=== PATIENT | male | born 1960 | race Caucasian/White ===

== ENCOUNTER 2024-12-01 18:54 | Emergency (ER) | payer SELFPAY ==
[2024-12-01 19:05] VITALS: BMI 34.7
--- NOTE | 2024-12-01 19:40 | ED.UPPEXIN1 ---
HPI HPI - Extremity Injury (Upper) General Chief Complaint: Extremity Injury, Upper Stated Complaint: LEFT UPPER EXTREMITY INJURT Time Seen by Provider: 12/01/24 19:06 History of Present Illness HPI narrative: Patient is a 64-year-old male presents to the ER for evaluation of left hand injury. He is right-hand dominant. Removed a tractor engine and was inspecting it while it sat on a fork lift. He reports a child lowered the fork and the engine came down on his middle finger and ring finger for a significant period of time until they could get someone to pull the fork back up off his hand. He is unsure of his last tetanus. Patient immediately squeezed the hand with a rag and has had applied direct pressure since injury until arrival here in the ER. He appears anxious with injury and notes moderate to severe pain in the middle and ring finger. He does not have any rings on his fingers. Patient reports only allergy is to codeine. He is daughter and granddaughter. Patient drives a truck for a living. MD complaint: injury to: Reports left and finger Other Extremity Injury: Left: fingers Other injuries: Reports none Hand dominance: right Place: Reports other ([employer]- not at work per patient. ) Severity: moderate Exacerbating factors: Reports movement of extremity Context: Reports crush Related Data Previous Rx's ?Medication ?Instructions ?Recorded cephalexin 500 mg capsule 500 mg PO QID 10 days #40 caps 12/01/24 hydrocodone 5 mg-acetaminophen 325 1 tab PO QID PRN pain 4 days #16 12/01/24 mg tablet tabs Allergies Allergy/AdvReac Type Severity Reaction Status Date / Time codeine Allergy Unknown Rash Verified 12/01/24 19:04 Opioid HPI Opioid Management Most Recent Pain and Opioid Data: No Data to Display Review of Systems ROS Constitutional Denies: fever or chills Eyes Denies: change in vision Ears, nose, mouth, and throat Denies: throat pain or neck pain Cardiovascular Denies: chest pain or palpitations Respiratory Denies: shortness of breath Gastrointestinal Denies: abdominal pain or nausea Musculoskeletal Reports: extremity pain (left ring and middle finger); Denies: back pain or neck pain Integumentary/Breast Denies: rash or itching Neurological Denies: headache Psychiatric Denies: anxiety Hematologic/Lymphatic Reports: easy bleeding (per patient) PFSH PFSH Social History Little interest or pleasure in doing things: not at all Feeling down, depressed, or hopeless: not at all Exam Narrative Exam Narrative: Nurse's notes and vital signs reviewed. Patient is not hypoxic. General: The patient appears anxious pacing in the room. Skin: Warm, dry, no pallor noted. Degloving injury to the volar aspect of the middle finger from the distal phalanx to the PIP joint. Skin is heavily soiled the ring finger has puncture wounds along the middle phalanx and distal phalanx both nails appear to have significant full subungual hematoma. Skin flap tip noted to the tip of the middle finger Head: Normocephalic, atraumatic Eye: Normal conjunctiva Respiratory: Patient is in no distress Musculoskeletal: The left wrist shows no obvious deformity. Tissue skin injuries noted to the ring and middle finger with degloving as described above. Patient has heavily soiled hands with grease and dirt. There was minimal swelling noted finger the hand is otherwise unremarkable. The patient had intact flexion and extension despite obvious degloving and some visualization of the flexor tendon in the middle finger along with visualization of some bone of the distal phalanx of the middle finger. Sensation is blunted to the middle finger at the distal tip but present at the ring finger at the distal tip. The patient had tenderness to the middle and ring finger at the middle phalanxes and distal phalanxes no pain to the proximal phalanx or MCP joints the hand and wrist are without evidence of injury or tenderness. The patient had no tenderness in the anatomical snuff box. The patient had no pain with axial loading of the thumb. Pulses are intact at brachial and radial 2+. There was no deficit at the elbow or shoulder. The patient has normal capillary refill to all distal digits. The patient has no evidence of cyanosis or mottling. The patient is able to flex and extend all digits without difficulty. Neurological: A&O x4, normal sensory, normal motor Psychiatric: Cooperative MDM - Extremity Injury (Upper) MDM Narrative Medical decision making narrative: Patient presented with what appeared to be extreme pain from a crush injury to his middle and ring finger patient in the room requesting pain relief. He has intact flexion extension and sensation is present to the tip of his ring finger the middle finger has a notable degloving injury and sensation is significantly blunted but pain is present. Patient agreeable to digital block. Risks and benefits of procedure discussed. His have hand is heavily soiled with grease from working on an engine. Patient had flexor tendon sheath block performed on the ring and middle finger with a 50-50 mix of 1% lidocaine and 0.5% bupivacaine approximately 4 mL in each finger. He reported near immediate pain relief and appeared much more calm. Flexion extension noted to be intact the hand was cleansed with Hibiclens scrub brush and irrigated extensively with 0.9% saline a wet to dry gauze dressing was applied pending x-ray evaluation. There was no rotational deformity of the finger noted. Patient had a tetanus update, will be given Ancef 2 g IV. Case discussed with on-call orthopedics Dr. Brar. We discussed the patient's skin injuries fracture to the tip of his middle finger that is open but intact flexion and extension. He is aware of the extensive irrigation here at the bedside and we discussed the need for potential skin graft closure given tissue damage with degloving and crushing injury. He would like to see the patient Wednesday in his office for evaluation and have a prescription for Keflex 500 mg 4 times a day pending his evaluation. Patient aware that he can be n.p.o. the night before if he does not want to be awake for the procedure otherwise may have a digital block. Patient thankful, tolerated block well here today with extensive irrigation of the fingers and cleaning. Sutures were not placed as the hand was significantly dirty and skin flap is large and thin with open fracture. Patient verbally agrees to follow-up Wednesday in Dr. Brar's office at 10:15am as recommended and will return to the ER over the weekend if any symptoms worsen or new symptoms develop. Patient was very thankful for expedient care. Wound care discussed he is to leave the dressing on the hand pending follow-up with can return to the ER over the weekend should he have any concerns pending his Wednesday appointment. Patient is very pleased with an outpatient follow-up rather than overnight admission. Lab Data Attestation: I reviewed the patient's lab results. Labs: Lab Results 12/01/24 Range/Units 20:00 WBC 5.9 (4.0-11.0) 10^3/uL RBC 5.27 (4.70-6.10) 10^6/uL Hgb 15.2 (14.0-18.0) g/dL Hct 44.0 (42.0-54.0) % MCV 83.5 (80.0-94.0) fL MCH 28.8 (25.9-34.0) pg MCHC 34.5 (29.9-35.2) g/dL RDW 12.7 (11.0-15.0) % Plt Count 155 (150-450) 10^3/uL MPV 11.1 (9.5-13.5) fL Neut % (Auto) 57.5 (43.0-75.0) % Lymph % (Auto) 29.1 (20.5-60.0) % [place] % (Auto) 10.5 (1.7-12.0) % Eos % (Auto) 2.2 (0.9-7.0) % Baso % (Auto) 0.5 (0.2-2.0) % Neut # (Auto) 3.4 (1.4-6.5) 10^3/uL Lymph # (Auto) 1.7 (1.2-3.8) 10^3/uL [place] # (Auto) 0.6 (0.3-0.8) 10^3/uL Eos # (Auto) 0.1 (0.0-0.7) 10^3/uL Baso # (Auto) 0.0 (0.0-0.1) 10^3/uL Abs Immat Gran (auto) 0.01 (0.00-0.03) 10^3/uL Imm/Tot Granulo (auto) 0.2 (0.0-0.5) % Sodium 139 (136-145) mmol/L Potassium 3.7 (3.5-5.1) mmol/L Chloride 104 (98-107) mmol/L Carbon Dioxide 25.9 (21.0-32.0) mmol/L Anion Gap 12.8 BUN 25.0 H (7.0-18.0) mg/dL Creatinine 0.99 (0.70-1.30) mg/dL Est GFR ( Amer) >60 (>=60 mL/min/1.73m^2) Est GFR (Non-Af Amer) >60 (>=60 mL/min/1.73m^2) BUN/Creatinine Ratio 25.3 Glucose 101 (74-106) mg/dL Calcium 8.6 (8.5-10.1) mg/dL Imaging Data X-ray left hand: Attestation: I personally reviewed and interpreted this imaging study as follows: My impression: Soft tissue swelling to the left middle finger and ring finger there is a displaced distal phalanx fracture to the middle finger Radiologist's impression: Neurologist interpretation is pending. Discharge Plan Discharge Chief Complaint: Extremity Injury, Upper Clinical Impression: Crushing injury of left ring finger, initial encounter, Open fracture of distal phalanx of digit of left hand, Degloving injury of finger Crushing injury of left middle finger Qualifiers: Encounter type: initial encounter Qualified Code(s): S67.193A - Crushing injury of left middle finger, initial encounter Patient Disposition: Home, Self-Care Time of Disposition Decision: 20:40 Condition: Good Prescriptions / Home Meds: New cephalexin 500 mg capsule 500 mg PO QID 10 Days Qty: 40 0RF hydrocodone-acetaminophen 5-325 mg tablet 1 tab PO QID PRN (Reason: pain) 4 Days Qty: 16 0RF Print Language: Nepalese Instructions: Finger Fracture (ED), Skin Avulsion (ED) Additional Instructions: If You are wanting sedation for procedure with Dr. Brar. Do not eat or drink after midnight on Wednesday Follow up Wednesday at 10:15am with Dr. Brar and have a distribution driver. Referrals: Simon Brar MD [Physician] - 12/04/24 10:15 am Procedures ED Ortho Splinting/Casting Orthopedic Splinting/Casting Injury #1: Additional comments: Splint Application: The patient was placed in a volar wrist splint to support middle and ring fingers with Orthoglass splint material, 2 inch. The patient had 2 rolls of the web roll applied to the affected site. Patient then had the splint material placed with felt side against web roll and skin. The patient had the splint secured in place with abel bandage. The patient was neurovascularly intact post application of the splint.
[2024-12-01] MEDS: CEFAZOLIN SODIUM/DEXTROSE,ISO 2 GM/50 ML PIGGYBACK IV (20:04)
[2024-12-01] MEDS: BUPIVACAINE HCL 0.5% PF 50 MG/10 ML VIAL 5 ML INJ (20:04)
[2024-12-01] MEDS: LIDOCAINE HCL 1% 100 MG/10 ML MDV INJ (20:04)
[2024-12-01] MEDS: ADACEL DIPH,PERTUSS(ACELL),TET VAC/PF 0.5 ML ADULT SYRINGE IM (20:05)
[2024-12-01] MEDS: SODIUM CHLORIDE 0.9% IRRIG SOLUTION 1,000 ML BOTTLE 1000 ML IRR (20:06)
[2024-12-01 20:19] LABS: Basophils Percent Auto 0.5 % (0.2-2.0); Eosinophils Absolute Auto 0.1 10^3/uL (0.0-0.7); Eosinophils Percent Auto 2.2 % (0.9-7.0); Hemoglobin 15.2 g/dL (14.0-18.0); Immature Granulocytes Abs Auto 0.01 10^3/uL (0.00-0.03); Immature Granulocytes Pct Auto 0.2 % (0.0-0.5); Lymphocytes Absolute Auto 1.7 10^3/uL (1.2-3.8); Lymphocytes Percent Auto 29.1 % (20.5-60.0); Mean Corpuscular HGB Conc 34.5 g/dL (29.9-35.2); Mean Corpuscular Hemoglobin 28.8 pg (25.9-34.0); Mean Corpuscular Volume 83.5 fL (80.0-94.0); Mean Platelet Volume 11.1 fL (9.5-13.5); Monocytes Absolute Auto 0.6 10^3/uL (0.3-0.8); Monocytes Percent Auto 10.5 % (1.7-12.0); Neutrophils Absolute Auto 3.4 10^3/uL (1.4-6.5); Neutrophils Percent Auto 57.5 % (43.0-75.0); Platelet Count 155 10^3/uL (150-450); Red Blood Count 5.27 10^6/uL (4.70-6.10); Red Cell Distribution Width 12.7 % (11.0-15.0); White Blood Count 5.9 10^3/uL (4.0-11.0)
[2024-12-01 20:27] LABS: Anion Gap 12.8; BUN Creatinine Ratio 25.3; Calcium 8.6 mg/dL (8.5-10.1); Carbon Dioxide 25.9 mmol/L (21.0-32.0); Chloride 104 mmol/L (98-107); Estimated GFR (African America >60 (>=60 mL/min/1.73m^2); Estimated GFR (Non-African Ame >60 (>=60 mL/min/1.73m^2); Glucose 101 mg/dL (74-106); Potassium 3.7 mmol/L (3.5-5.1); Sodium 139 mmol/L (136-145)
[2024-12-01 20:34] LABS: INR 1.19; Partial Thromboplastin Time 28.2 sec (22.3-36.2); Prothrombin Time 12.4 sec (9.0-11.6)
[2024-12-01] MEDS: HYDROCODONE/ACET 5-325 MG TABLET 2 TAB PO (20:38)
[2024-12-01 20:48] VITALS: BP 166/96; PULSE 83; O2SAT 96
== END 2024-12-01 20:50 | disposition home or self-care (01) ==
PROVIDERS: Personal Emergency Response Attendant; Emergency Provider Emergency Medicine
DX: S62.633B Displaced fracture of distal phalanx of left middle finger, initial encounter for open fracture (principal); S61.305A Unspecified open wound of left ring finger with damage to nail, initial encounter; W23.0XXA Caught, crushed, jammed, or pinched between moving objects, initial encounter; Z23 Encounter for immunization; M79.642 Pain in left hand
CPT/HCPCS: 36415; 64450; 73130; 80048; 85025; 85610; 85730; 90471; 90715; 96365; 99285; J0665; J0690

== ENCOUNTER 2024-12-04 12:58 | Day surgery (SDC) | payer OTHER, SELFPAY ==
[2024-12-04] VITALS (11 sets, daily range): BP systolic 126–154; BP diastolic 86–96; PULSE 59–78; TEMP 36.2–36.3; O2SAT 93–98; BMI 35.0
[2024-12-04] MEDS: 0.9 % SODIUM CHLORIDE 500 ML 50 ML IV (13:38)
--- NOTE | 2024-12-04 13:49 | ECG_ITS ---
[facility] Test Date: 2024-12-04 Pat Name: MURIEL EPSTEIN Department: Room: - Gender: Male Battery Technician: : [id number] Requested By: [id number] Order Number: [id number] Reading MD: TERRA SNEED M.D. Measurements Intervals [place] Rate: 57 P: 58 OK: 200 QRS: 22 QRSD: 108 T: 19 QT: 415 QTc: 406 Interpretive Statements SINUS BRADYCARDIA Otherwise normal ECG No previous ECG available for comparison Electronically Signed On 12-04-2024 20:29:41 EDT by TERRA SNEED M.D.
[2024-12-04] MEDS: CEFAZOLIN SODIUM/DEXTROSE,ISO 2 GM/50 ML PIGGYBACK IV (14:08)
[2024-12-04] MEDS: LACTATED RINGER'S SOLUTION 1,000 ML 50 ML IV (14:40)
[2024-12-04] MEDS: BUPIVACAINE HCL 0.5% PF 50 MG/10 ML VIAL 5 ML INJ (15:07)
[2024-12-04] MEDS: LIDOCAINE HCL 1%-EPINEPHRINE 1:100,000 20 ML MDV 5 ML INJ (15:07)
--- NOTE | 2024-12-04 15:16 | PM.ORPRC ---
Procedure Note Date of procedure: 12/04/24 Pre-op diagnosis: Left long finger tip amputation Post-op diagnosis: same as pre-op Procedure: Procedure: Revision amputation left long finger Detailed description of procedure: After informed consent was obtained the patient brought to the operating room where general anesthetic was administered. The left arm was prepped and draped in the usual sterile fashion. Finger turnicot was placed over the left long finger. Wound was irrigated and inspected and there was a complex opened wound to the left long fingertip. Distal phalanx was comminuted along its entire length. There was no adequate soft tissue coverage over the distal phalanx and this was removed with a 15 blade. The end of the middle phalanx was debulked with a rongeur along the condyles and epicondyles to make it more rounded. Soft tissue flaps were created with a 15 blade in order to get adequate coverage over the distal phalanx. Digital nerves were identified and transected within fat. Wound was again irrigated and the fishmouth type of flap was closed over the top of the middle phalanx using 3-0 nylon suture in a simple fashion. Nice soft tissue coverage was achieved. Finger turnicot was removed. Digital block was performed with 5 mL 1% lidocaine plain combined with 5 mL 0.5% Marcaine plain. Sterile dressing was placed. Patient was awakened and brought to the recovery room in stable condition. There were no intraoperative or immediate postoperative complications. Anesthesia: ABEL Surgeon: Simon Brar Estimated blood loss (mL): 1 Pathology: none sent Condition: stable Disposition: PACU
== END 2024-12-04 16:25 | disposition home or self-care (01) ==
PROVIDERS: Visit Provider Orthopaedic Surgery
PROC: (CPT 26952; principal; 2024-12-04 14:15)
DX: S68.123A Partial traumatic metacarpophalangeal amputation of left middle finger, initial encounter (principal); W23.0XXA Caught, crushed, jammed, or pinched between moving objects, initial encounter
CPT/HCPCS: 26952; 93005; J0665; J0690; J1100; J1885; J2250; J2405; J2704; J3010